=== PATIENT | female | born 1960 | race Caucasian/White ===

== ENCOUNTER 2021-11-07 13:30 | Observation (INO) ==
[2021-11-07 13:52] LABS: Basophils # 0.1 10*3/uL (0.0-0.2); Basophils % 0.4 % (0.0-0.8); Eosinophils # 0.1 10*3/uL (0.0-0.87); Eosinophils % 1.1 % (0.00-10.9); Hematocrit 48.8 VOL% (35.7-47.0); Hemoglobin 15.3 GM/DL (12.0-16.0); Immature Granulocytes % 0.5 %; Immature Granulocytes Absolute 0.06 #; Lymphocytes # 1.6 10*3/uL (1.4-4.0); Lymphocytes % 13.4 % (21.3-54.2); Mean Corpuscular HGB Conc 31.4 GM/DL (32-36); Mean Corpuscular Volume 93.5 FL (87-102); Monocytes % 6.6 % (1.7-12.7); Platelet Count 165 T/CUMM (130-400); Red Blood Count 5.22 MC/CUMM (3.8-5.5); Red Cell Distribution Width 16.1 % (9.3-17.3); White Blood Count 11.7 T/CUMM (4-12)
[2021-11-07 14:11] LABS: Bilirubin,Total 0.8 MG/DL (0.20-1.00); Calcium 9.5 MG/DL (8.5-10.1); Osmolality,Calculated 285.3 MOS/KG (273-304); Total Protein 7.3 G/DL (6.4-8.2)
[2021-11-07 15:07] LABS: INR 1.1; PT Patient Result 11.9 SECS (10.5-12.0); Partial Thromboplastin Time 28.2 SECS (23.8-32.1)
[2021-11-07] MEDS ORDERED: ONDANSETRON 4 MG/2 ML VIAL IV PRN (15:21)
[2021-11-07] MEDS ORDERED: GLUCAGON 1 MG VIAL IM PRN (15:21)
[2021-11-07] MEDS ORDERED: ACETAMINOPHEN 325 MG TABLET PO PRN (15:21)
[2021-11-07] MEDS ORDERED: DEXTROSE 50% 25 GM/50 ML SYRINGE IV PRN (15:21)
[2021-11-07] MEDS ORDERED: hydrALAZINE 20 MG/1 ML VIAL IV PRN (15:34)
[2021-11-07] MEDS ORDERED: GABAPENTIN 100 MG CAPSULE PO PRN (15:40)
[2021-11-07] MEDS ORDERED: NORTRIPTYLINE 25 MG CAPSULE PO PRN (15:40)
[2021-11-07] MEDS ORDERED: ALBUTEROL 2.5 MG/3 ML NEB RESP TX PRN (15:56)
[2021-11-07] MEDS ORDERED: LOSARTAN/HCTZ 50-12.5 MG TABLET PO SCH (16:00)
[2021-11-07] MEDS: KETOROLAC 30 MG/1 ML VIAL IV SCH ×2 (16:20→23:52)
[2021-11-07] MEDS: VALSARTAN 160 MG TABLET PO SCH (19:26)
[2021-11-07] MEDS: hydroCHLOROthiazide 25 MG TABLET PO SCH (19:26)
[2021-11-07] MEDS: BUDESONIDE 0.5 MG/2 ML NEB RESP TX SCH (19:53)
[2021-11-07 20:12] LABS: Bacteria,Urine Occasional /HPF (Few); Bilirubin,Urine Negative (Negative); Blood, Urine Negative (Negative); Glucose,Urine (UA) Negative (Negative); Hyaline Casts,Urine 16 /LPF (0-3); Ketones,Urine 5 mg/dL (Negative); Mucus,Urine Occasional /LPF (Occasional); Nitrite,Urine Negative (Negative); Protein,Urine 30 MG/DL; Squamous Epithelial Cell,Urine Occasional /HPF (0-10); Urine Appearance CLEAR (Clear); Urine Color Amber (Yellow); Urine Specific Gravity 1.019 (1.001-1.035); Urine Urobilinogen < 2.0 EU/DL (<2.0)
[2021-11-07] MEDS ORDERED: ATORVASTATIN 20 MG TABLET PO SCH (21:00)
[2021-11-07] MEDS: allopurinoL 100 MG TABLET PO SCH (23:52)
[2021-11-07] MEDS: atenoloL 50 MG TABLET PO SCH (23:52)
[2021-11-07] MEDS: APIXABAN 5 MG TABLET PO SCH (23:52)
[2021-11-08] MEDS: KETOROLAC 30 MG/1 ML VIAL IV SCH ×3 (03:41→15:44)
[2021-11-08 05:51] LABS: Albumin 2.4 G/DL (3.4-5.0); Bilirubin,Total 0.8 MG/DL (0.20-1.00); Osmolality,Calculated 285.3 MOS/KG (273-304); Potassium 3.4 MMOL/L (3.5-5.1); Risk Ratio 4.49; Thyroid Stimulating Hormone 1.02 uIU/ml (0.358-3.74); VLDL Cholesterol 30.8 MG/DL
[2021-11-08 05:56] LABS: Basophils % 0.3 % (0.0-0.8); Eosinophils # 0.2 10*3/uL (0.0-0.87); Hematocrit 42.9 VOL% (35.7-47.0); Hemoglobin 13.3 GM/DL (12.0-16.0); Immature Granulocytes % 0.5 %; Immature Granulocytes Absolute 0.05 #; Lymphocytes # 1.6 10*3/uL (1.4-4.0); Lymphocytes % 14.6 % (21.3-54.2); Mean Corpuscular Volume 94.1 FL (87-102); Mean Platelet Volume 12.1 FL (9.6-12.0); Monocytes % 8.6 % (1.7-12.7); Platelet Count 148 T/CUMM (130-400); Red Blood Count 4.56 MC/CUMM (3.8-5.5); Red Cell Distribution Width 16.2 % (9.3-17.3); White Blood Count 10.7 T/CUMM (4-12)
[2021-11-08] MEDS ORDERED: MAGNESIUM SULF RIDER 2 GM/50 ML PREMIX IV ONE (07:25)
[2021-11-08] MEDS ORDERED: POTASSIUM CHLORIDE 20 MEQ TABLET PO ONE (07:25)
[2021-11-08] MEDS: BUDESONIDE 0.5 MG/2 ML NEB RESP TX SCH (07:30)
[2021-11-08] MEDS ORDERED: NITROGLYCERIN SL 0.4 MG TABLET SL PRN (08:35)
[2021-11-08] MEDS: APIXABAN 5 MG TABLET PO SCH (08:39)
[2021-11-08] MEDS: allopurinoL 100 MG TABLET PO SCH (08:40)
[2021-11-08] MEDS: atenoloL 50 MG TABLET PO SCH (08:41)
[2021-11-08] MEDS: hydroCHLOROthiazide 25 MG TABLET PO SCH (08:42)
[2021-11-08] MEDS: VALSARTAN 160 MG TABLET PO SCH (08:43)
[2021-11-08] MEDS ORDERED: ASCORBIC ACID 500 MG TABLET PO SCH (09:00)
[2021-11-08] MEDS ORDERED: MAGNESIUM OXIDE 400 MG TABLET PO SCH (09:00)
[2021-11-08] MEDS ORDERED: ASPIRIN CHEW 81 MG TABLET PO SCH (09:00)
[2021-11-08] MEDS ORDERED: CHOLECALCIFEROL 1,000 UNIT TABLET PO SCH (09:00)
[2021-11-08] MEDS ORDERED: ZINC GLUCONATE 50 MG TABLET PO SCH (09:00)
[2021-11-08] MEDS ORDERED: atenoloL 50 MG TABLET PO SCH ×2 (09:00→21:00)
[2021-11-08] MEDS ORDERED: PANTOPRAZOLE 40 MG TABLET PO SCH (09:00)
[2021-11-08] MEDS ORDERED: atenoloL 25 MG TABLET PO ONE (13:38)
[2021-11-08 15:42] VITALS: BP 155/78
[2021-11-08] MEDS ORDERED: atenoloL 25 MG TABLET PO SCH (21:00)
[2021-11-09] MEDS ORDERED: NEBIVOLOL 10 MG TABLET PO SCH (09:00)
== END 2021-11-08 18:33 | disposition home or self-care (01) ==
LOC: N.EDINP 13:30 → N.ED 13:30 → SUATTDRO 15:21 → N.TELEN 11-08 00:43
PROVIDERS: ADMIT Phlebology; ATTEND Internal Medicine